=== PATIENT | male | born 1975 | race Caucasian/White ===

== ENCOUNTER 2023-08-03 16:48 | Outpatient (CLI) | payer BC | END 2023-08-03 16:49 | disposition home or self-care (01) | LOC: CSHRAD 16:48 | PROVIDERS: ATTEND Family Medicine Sports Medicine | DX: R07.81 Pleurodynia (principal) ==

== ENCOUNTER 2023-08-09 07:47 | Outpatient (CLI) | payer OTHER | END 2023-08-09 07:48 | disposition home or self-care (01) | LOC: CSHCT 07:47 | PROVIDERS: ATTEND Family Medicine Sports Medicine | DX: Z82.49 Family history of ischemic heart disease and other diseases of the circulatory system (principal) | CPT/HCPCS: 75571 ==